=== PATIENT | female | born 1975 | race Hispanic/Latino ===

== ENCOUNTER 2022-07-14 12:30 | Emergency (ER) | payer BC ==
[~2022-07-14] VITALS: Ht 157.5 cm; Wt 63.5 kg
[2022-07-14 12:32] VITALS: BP 121/77
[2022-07-14] MEDS ORDERED: TETANUS/DIPHTHERIA TOXOID [ADULT] 0.5 ML VIAL IM ONE (13:30)
[2022-07-14] MEDS ORDERED: LIDOCAINE HCL-MPF 2% 5ML VIAL IM SCH (13:30)
== END 2022-07-14 16:15 | disposition home or self-care (01) ==
LOC: EDH 12:30
DX: S60.552A Superficial foreign body of left hand, initial encounter (principal); W45.8XXA Other foreign body or object entering through skin, initial encounter; Y93.89 Activity, other specified; Y92.89 Other specified places as the place of occurrence of the external cause; Y99.8 Other external cause status
CPT/HCPCS: 99284; 90714; 73120; 90471; J3490; 10120